=== PATIENT | male | born 1980 | race Caucasian/White ===

== ENCOUNTER 2018-03-01 14:33 | Emergency (ER) | payer SELFPAY ==
[~2018-03-01] VITALS: Ht 132.1 cm; Wt 56.7 kg
[2018-03-01 14:33] VITALS: BP 132/93
--- NOTE | 2018-03-01 14:35 | NUR ---
Patient placed in the waiting room,ER is full, [id number], ambulates with steady gait.
--- NOTE | 2018-03-01 15:04 | NUR ---
Patient eloped from facility. ER MD notified. Patient left without being seen by Dr Colindres.
== END 2018-03-01 15:10 | disposition left against medical advice (07) ==
LOC: ER 14:35
DX: Z53.21 Procedure and treatment not carried out due to patient leaving prior to being seen by health care provider (principal); F10.129 Alcohol abuse with intoxication, unspecified
CPT/HCPCS: A4606; Z7610